=== PATIENT | male | born 1990 | race Caucasian/White ===

== ENCOUNTER 2019-04-25 15:10 | Emergency (ER) | payer MEDICAID ==
[2019-04-25] MEDS ORDERED: KETOROLAC 30 MG/ML VIAL IM ONE (15:29)
[2019-04-25] MEDS ORDERED: ORPHENADRINE CITRATE 60MG/2ML VIAL IM ONE (15:29)
--- NOTE | 2019-04-25 15:34 | Emergency Department Record ---
History of Present Illness - General Chief Complaint: Back Pain/Injury Stated Complaint: BACK PAIN Time Seen by Provider: 04/25/19 15:25 Source: Patient Mode of Arrival: Ambulatory Limitations: No limitations - History of Present Illness Initial Comments: The patient is here due to back pain for one week. He was lifting a heavy object when he suddenly developed R sided mid and lower back pain. The pain is much worse with any lifting or bending. There is no radiation down the legs and no leg numbness, weakness, or any bowel or bladder issues. Additionally the patient has recently noticed his neck "popping" with ROM exercises. There has been no trauma, fall, BARRERA, or arm numbness or weakness. The patient has been taking no medicine for it and feels that the pain is worsening. MD Complaint: Back pain Onset/Timin -: Week(s) Similar Symptoms Previously: No Place: Home Severity: Moderate Severity scale (1-10): 10 Quality: Sharp Consistency: Constant Improves With: None Worsens With: Movement, Walking Context: While lifting Associated Symptoms: Other Treatments Prior to Arrival: Acetaminophen, NSAIDS Treatment Prior to Arrival Comment:: Tylenol last PM - Related Data Previous Rx's Medication Instructions Recorded Cyclobenzaprine HCl [Flexeril] 10 mg PO TID PRN #20 tablet 04/25/19 Naproxen [Naprosyn] 500 mg PO BID #14 tablet. 04/25/19 Allergies Allergy/AdvReac Type Severity Reaction Status Date / Time No Known Drug Allergies Allergy Verified 04/25/19 15:15 Travel Screening - Travel/Exposure Within Last 30 Days Have you traveled within the last 30 days?: No - Travel/Exposure Within Last Year Have you traveled outside the [place] in the last year?: No - Additonal Travel Details Have you been exposed to anyone with a communicable illness?: No - Travel Symptoms Symptom Screening: None Review of Systems Constitutional: Denies: Chills, Fever Eyes: Denies: Eye discharge ENT: Denies: Congestion Respiratory: Denies: Cough, Dyspnea Cardiovascular: Denies: Arrhythmia, Chest pain Past Medical History - SOCIAL HISTORY Smoking Status: Current every day smoker Alcohol Use: Rare Drug Use: Occasional Drug Use Detail:: Marijuana - RESPIRATORY Hx Respiratory Disorders: No - CARDIOVASCULAR Hx Cardio Disorders: No - NEURO Hx Neuro Disorders: No - GI Hx GI Disorders: No - Hx Genitourinary Disorders: No - ENDOCRINE Hx Endocrine Disorders: No - MUSCULOSKELETAL Hx Musculoskeletal Disorders: No - PSYCH Hx Psych Problems: No - HEMATOLOGY/ONCOLOGY Hx Hematology/Oncology Disorders: No Family Medical History Any Significant Family History?: No Physical Exam - General General Appearance: Alert, Oriented x3, Cooperative, No acute distress - Head Head exam: Atraumatic, Normocephalic, Normal inspection - Eye Eye exam: Normal appearance, PERRL, EOMI - ENT Throat exam: Normal inspection. negative: Tonsillar erythema, Tonsillar exudate - Neck Neck exam: Normal inspection, Full ROM. negative: Lymphadenopathy, Meningismus, Tenderness - Respiratory Respiratory exam: Normal lung sounds bilaterally. negative: Respiratory distress - Cardiovascular Cardiovascular Exam: Regular rate, Normal rhythm, Normal heart sounds - GI/Abdominal GI/Abdominal exam: Soft, Normal bowel sounds. negative: Tenderness - Extremities Extremities exam: Normal inspection, Full ROM, Normal capillary refill, Other (Neg SLR bilaterally.). negative: Calf tenderness, Pedal edema, Tenderness - Back Back exam: Reports: Normal inspection, Paraspinal tenderness (There is R lower thoracic and upper lumbar paraspinal tenderness.). Denies: Rash noted, Vertebral tenderness Image of Body Front/Back: 1 - Area of pain and tenderness. 2 - Area of pain and tenderness. - Neurological Neurological exam: Alert, Normal gait, Oriented X3, Reflexes normal. negative: Abnormal gait, Altered, Motor sensory deficit - Psychiatric Psychiatric exam: negative: Anxious Course Vital Signs 04/25/19 15:17 Temperature 97.9 F Pulse Rate 85 Respiratory 18 Rate Blood Pressure 156/95 Pulse Ox 98 - Reevaluation(s) Reevaluation #1: The patient is doing a lot better at this time. His pain is much improve and he is ready for home. I did discuss the cervical xrays with him and the need for F/U if his back does not improve. 04/25/19 16:20 Medical Decision Making - Data Complexity MDM Data: X-Ray Ordered and/or Reviewed - Radiology Data Radiology results: Report reviewed (Cervical Spine: Neg for acute changes. Loss of lordosis.) Disposition Disposition: Discharge Clinical Impression: Muscle strain Disposition: Home, Self-Care Condition: (2) Stable Instructions: Low Back Strain (ED) Additional Instructions: Please take the Naprosyn and Flexeril as directed and do not lift anything heavy until improved. Please see your family doctor next week if not better. Return to the ER for any worsening symptoms. Prescriptions: Cyclobenzaprine HCl [Flexeril] 10 mg PO TID PRN #20 tablet PRN Reason: Pain Naproxen [Naprosyn] 500 mg PO BID #14 tablet.dr Forms: Patient Portal Access Time of Disposition: 16:20 Quality - Quality Measures Quality Measures: N/A - Blood Pressure Screening Does Patient Have Any of the Following: No Blood Pressure Classification: Hypertensive Reading Systolic Measurement: 156 Diastolic Measurement: 95 Screening for High Blood Pressure: < First Hypertensive BP, F/U Documented > [G8950] First Hypertensive Follow-up Interventions: Referral to alternative/primary care provider.
--- NOTE | 2019-04-27 08:55 | RADIOLOGY REPORT ---
EXAM: CERVICAL SPINE Minimum 4 Views HISTORY: NECK PAIN. TECHNIQUE: Five views of the cervical spine. COMPARISON: None. FINDINGS: Straightening of the cervical lordosis; vertebral body alignment otherwise maintained. Vertebral body heights are intact. No significant disc space height loss. Minimal scattered arthrosis. No significant neural foraminal stenosis appreciated on oblique views. Prevertebral soft tissues are within normal radiographic limits. Mandibular fixation hardware is noted. IMPRESSION: MINIMAL CERVICAL SPINE DEGENERATIVE CHANGE, OTHERWISE UNREMARKABLE RADIOGRAPHIC APPEARANCE OF THE CERVICAL SPINE. JOB NUMBER: [id number] MTDD
== END 2019-04-25 16:39 | disposition home or self-care (01) ==
LOC: ER 15:10
DX: S39.012A Strain of muscle, fascia and tendon of lower back, initial encounter (principal); S29.012A Strain of muscle and tendon of back wall of thorax, initial encounter; X50.0XXA Overexertion from strenuous movement or load, initial encounter; Y92.009 Unspecified place in unspecified non-institutional (private) residence as the place of occurrence of the external cause; F17.210 Nicotine dependence, cigarettes, uncomplicated
CPT/HCPCS: 99283 ×2; 96372; 72050; J1885; J2360

== ENCOUNTER 2019-04-28 18:33 | Emergency (ER) | payer MEDICAID ==
[2019-04-28] MEDS ORDERED: HYDROCODONE/APAP 7.5/325MG TABLET PO ONE (19:17)
[2019-04-28] MEDS ORDERED: IBUPROFEN 400 MG TABLET PO ONE (19:17)
--- NOTE | 2019-04-28 19:22 | Emergency Department Record ---
History of Present Illness - General Chief Complaint: Wound, puncture Stated Complaint: LT FOOT INJURY- PUNCTURE DRILL BIT Time Seen by Provider: 04/28/19 19:13 Source: Patient Mode of Arrival: Ambulatory Limitations: No limitations - History of Present Illness Initial Commments: 29 yo male presents to ED for evaluation following an injury to the left foot. 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 Patient reports that he removed the drill bit from the foot with resulting bleeding. Patient denies other injury on examination, denies health problems at his baseline. Patient reports that his tetanus is UTD. Onset/Timin -: Minutes(s) Extremity Location: Left: Foot Place: Outdoors Context: Accidental Associated Symptoms: Pain, Unable to move injured part - [place] Coma Scale Eye Response: (4) Open spontaneously Motor Response: (6) Obeys commands Verbal Response: (5) Oriented [place] Total: 15 - Related Data Patient Tetanus UTD (within 5 yrs): Yes Previous Rx's Medication Instructions Recorded Clindamycin HCl 300 mg PO QID #40 capsule 04/28/19 Allergies Allergy/AdvReac Type Severity Reaction Status Date / Time No Known Drug Allergies Allergy Verified 04/25/19 15:15 Travel Screening - Travel/Exposure Within Last 30 Days Have you traveled within the last 30 days?: No Review of Systems Constitutional: Denies: Chills, Fever, Malaise, Night sweats Eyes: Denies: Eye discharge, Eye pain ENT: Denies: Congestion, Ear pain, Epistaxis Respiratory: Denies: Cough, Dyspnea Cardiovascular: Denies: Chest pain, Dyspnea on exertion Endocrine: Denies: Fatigue, Heat or cold intolerance Gastrointestinal: Denies: Abdominal pain, Nausea, Vomiting Genitourinary: Denies: Incontinence, Retention Musculoskeletal: Reports: Arthralgia (left foot pain). Denies: Back pain, Gout, Joint swelling, Myalgia Skin: Denies: Bruising, Change in color Neurological: Denies: Confusion, Headache Psychiatric: Denies: Anxiety Hematological/Lymphatic: Denies: Anemia, Blood Clots Past Medical History - SOCIAL HISTORY Smoking Status: Current every day smoker Alcohol Use: None Drug Use: None - RESPIRATORY Hx Respiratory Disorders: No - CARDIOVASCULAR Hx Cardio Disorders: No - NEURO Hx Neuro Disorders: No - GI Hx GI Disorders: No - Hx Genitourinary Disorders: No - ENDOCRINE Hx Endocrine Disorders: No - MUSCULOSKELETAL Hx Musculoskeletal Disorders: No - PSYCH Hx Psych Problems: No - HEMATOLOGY/ONCOLOGY Hx Hematology/Oncology Disorders: No Family Medical History Any Significant Family History?: No Physical Exam - General General Appearance: Alert, Oriented x3, Cooperative, Mild distress Limitations: No limitations - Head Head exam: Atraumatic, Normocephalic, Normal inspection Head exam detail: negative: Abrasion, Contusion, Herrera's sign, General tenderness, Hematoma, Laceration - Eye Eye exam: Normal appearance. negative: Conjunctival injection, Periorbital swelling, Periorbital tenderness, Scleral icterus - ENT Ear exam: negative: Auricular hematoma, Auricular trauma Nasal Exam: negative: Active bleeding, Discharge, Dried blood, Foreign body Mouth exam: negative: Drooling, Laceration, Tongue elevation - Neck Neck exam: Normal inspection. negative: Meningismus, Tenderness - Respiratory Respiratory exam: Normal lung sounds bilaterally. negative: Respiratory distress, Rhonchi, Stridor, Wheezes - Cardiovascular Cardiovascular Exam: Regular rate, Normal rhythm, Normal heart sounds Peripheral Pulses: 3+: Dorsalis Pedis (L) - GI/Abdominal GI/Abdominal exam: Soft. negative: Rebound, Rigid, Tenderness - Rectal Rectal exam: Deferred - exam: Deferred - Extremities Extremities exam: Tenderness, Other (STS with a puncture wound located to the left dorsal distal aspect of the foot, mild bleeding present on examination. Strong DPP present. FROM of the toes are present on examination.). negative: Pedal edema - Back Back exam: Denies: CVA tenderness (R), CVA tenderness (L) - Neurological Neurological exam: Alert, Normal gait, Oriented X3 - Psychiatric Psychiatric exam: Normal affect, Normal mood - Skin Skin exam: Normal color. negative: Abrasion Type of lesion: negative: abrasion Course Vital Signs 04/28/19 19:07 Temperature 98.4 F Pulse Rate 101 H Respiratory 20 Rate Blood Pressure 141/84 Pulse Ox 99 - Reevaluation(s) Reevaluation #1: 04/28/19 21:45 CT Left Foot: No assocaited foot fracture is appreciated Subcutaenous air is present Patient was updated on his result. Puncture wound was irrigated with 1000 mL Sterile saline, Clindamycin 600 mg initiated in ED prior to discharge. Patient was given wound care instructions as well symptoms to return immediately to ED for (redness, swelling, increased pain, discharge, fevers, etc.). Patient appears stable for discharge at this time. Disposition Disposition: Discharge Clinical Impression: Puncture wound of foot Qualifiers: Encounter type: initial encounter Laterality: left Qualified Code(s): S91.332A - Puncture wound without foreign body, left foot, initial encounter Disposition: Home, Self-Care Condition: (2) Stable Instructions: Puncture Wound (ED) Additional Instructions: Return to ED if your symptoms worsen or if you have any concerns. Clindamycin as directed. Follow-up with your family doctor in 3-5 days as directed. Prescriptions: Clindamycin HCl 300 mg PO QID #40 capsule Forms: Patient Portal Access Time of Disposition: 21:49 Quality - Quality Measures Quality Measures: N/A - Blood Pressure Screening Does Patient Have Any of the Following: No Blood Pressure Classification: Pre-Hypertensive BP Reading Systolic Measurement: 141 Diastolic Measurement: 84 Screening for High Blood Pressure: < Pre-Hypertensive BP, F/U Documented > [G8950] Pre-Hypertensive Follow-up Interventions: Referral to alternative/primary care provider.
[2019-04-28] MEDS ORDERED: CLINDAMYCIN 150 MG CAP PO ONE (21:48)
--- NOTE | 2019-04-29 22:13 | CT SCAN REPORT ---
EXAM: CT SCAN LOWER EXTREMITY WO CONTRAST HISTORY: DRILL BIT PUNCTURE WOUND DORSAL ASPECT OF THE FOOT BETWEEN THE DISTAL ASPECTS OF THE FOURTH AND FIFTH METATARSALS. QUESTION OF FRACTURE. TECHNIQUE: Axial CT scan of the entire foot performed without IV contrast. COMPARISON: No prior left foot study with which to compare. In particular, no prior plain film with which to compare. ENCOUNTER: Initial. FINDINGS: There are numerous air bubbles in the soft tissues of the foot, most prominent adjacent to the distal end of the third metatarsal in between the third and fourth metatarsal. No metallic foreign body is seen to suggest a drill bit fragment. No definite fracture is identified. There is some soft tissue swelling in this region. IMPRESSION: 1. SOME SOFT TISSUE SWELLING ALONG THE DORSUM OF THE FOOT IN PARTICULAR AND ALSO SOME AIR IN THE SOFT TISSUES, PARTICULARLY NEAR THE DISTAL ASPECTS OF THE THIRD METATARSAL, PARTICULARLY LATERALLY. 2. NO DEFINITE FRACTURE OR METALLIC FOREIGN BODY IDENTIFIED INVOLVING THE LEFT FOOT. JOB NUMBER: [id number] MTDD
== END 2019-04-28 22:12 | disposition home or self-care (01) ==
LOC: ER 18:33
DX: S91.332A Puncture wound without foreign body, left foot, initial encounter (principal); W26.8XXA Contact with other sharp object(s), not elsewhere classified, initial encounter; F17.210 Nicotine dependence, cigarettes, uncomplicated; Y93.H3 Activity, building and construction; Y92.89 Other specified places as the place of occurrence of the external cause; Y99.0 Civilian activity done for income or pay
CPT/HCPCS: 99283; 99284